=== PATIENT | female | born 1945 | race Caucasian/White ===

== ENCOUNTER 2023-02-25 01:53 | Inpatient (IN) | payer MEDICARE ==
[2023-02-25] VITALS (48 sets, daily range): BP systolic 70–109; BP diastolic 19–88
[~2023-02-25] VITALS: Ht 152.4 cm
[2023-02-25] MEDS ORDERED: CARVEDILOL25 MG PO (02:52)
[2023-02-25 02:53] LABS: MEAN CELL VOLUME 91.2 fl (81.0-99.0); MEAN CORPUSCULAR HGB 27.5 pg (27.0-31.0); MEAN CORPUSCULAR HGB CONC 30.1 g/dl (33.0-37.0); MEAN PLATELET VOLUME 9.7 fl (9.6-12.3); NUCLEATED RED BLOOD CELL 0.2 10*3/uL (0.0-0.0); NUCLEATED RED BLOOD CELL 4.5 % (0.0-0.0); PLATELET COUNT AUTOMATED 188 10*3/uL (130-400); RED BLOOD COUNT 1.93 10*6/uL (4.10-5.10); RED CELL DISTRI WIDTH 16.3 % (0-14.5); WHITE BLOOD COUNT 3.8 10*3/uL (4.8-10.8)
[2023-02-25 02:56] LABS: MANUAL DIFF REFLEX YES
[2023-02-25 02:58] LABS: HEMATOCRIT 17.6 % (37.0-47.0)
[2023-02-25 03:05] LABS: ACT PARTIAL THROMBO TIME 45.7 SECONDS (20.0-32.1); INTERNATIONAL NORM RATIO 1.5 (2.0-3.5)
[2023-02-25 03:13] LABS: BASOPHILS 1 % (0-1); BURR CELLS MODERATE; PLATELET SUFFICIENCY NORMAL (NORMAL); TOTAL CELLS COUNTED 100 #CELLS
[2023-02-25 03:14] LABS: ACANTHOCYTES FEW; POLYCHROMASIA SLIGHT; ROULEAUX SLIGHT
[2023-02-25 03:21] LABS: ALKALINE PHOSPHATASE 54 U/L (46-116); CHLORIDE 99 mmol/L (98-107); LIPASE 73 U/L (12-53); TOTAL PROTEIN 6.4 gm/dL (6.0-8.0)
[2023-02-25 03:26] LABS: BUN 165 mg/dl (9-23); SGPT/ALT < 7 U/L (10-49)
[2023-02-25 03:29] LABS: POTASSIUM 6.9 mmol/L (3.4-5.1)
[2023-02-25] MEDS ORDERED: FUROSEMIDE40 MG PO (05:05)
[2023-02-25] MEDS ORDERED: LEVOTHYROXINE75 MCG PO (05:06)
[2023-02-25] MEDS ORDERED: LOSARTAN POTASS25 M1 PO (05:06)
[2023-02-25] MEDS ORDERED: Metolazone5 MG PO (05:06)
[2023-02-25] MEDS ORDERED: POTASSIUM CHLO20 ME3 PO (05:06)
[2023-02-25] MEDS ORDERED: Bactroban Oint22 GM T (05:06)
[2023-02-25] MEDS ORDERED: ELIQUIS5 M1 PO (05:07)
[2023-02-25] MEDS ORDERED: MASON NATURAL325 MG PO (05:07)
[2023-02-25 06:09] LABS: MEAN CELL VOLUME 90.3 fl (81.0-99.0); MEAN CORPUSCULAR HGB 27.9 pg (27.0-31.0); MEAN CORPUSCULAR HGB CONC 30.9 g/dl (33.0-37.0); MEAN PLATELET VOLUME 9.7 fl (9.6-12.3); NUCLEATED RED BLOOD CELL 0.2 10*3/uL (0.0-0.0); NUCLEATED RED BLOOD CELL 5.4 % (0.0-0.0); PLATELET COUNT AUTOMATED 169 10*3/uL (130-400); RED BLOOD COUNT 1.65 10*6/uL (4.10-5.10); RED CELL DISTRI WIDTH 16.4 % (0-14.5); WHITE BLOOD COUNT 3.5 10*3/uL (4.8-10.8)
[2023-02-25 06:18] LABS: HEMATOCRIT 14.9 % (37.0-47.0); MANUAL DIFF REFLEX YES
[2023-02-25 06:40] LABS: ACT PARTIAL THROMBO TIME 48.3 SECONDS (20.0-32.1); INTERNATIONAL NORM RATIO 1.5 (2.0-3.5)
[2023-02-25 07:12] LABS: ALKALINE PHOSPHATASE 50 U/L (46-116); CHLORIDE 100 mmol/L (98-107); CHOLESTEROL 75 mg/dL (<200); CPK 48 U/L (34-171); FREE T4 0.72 ng/dl (0.89-1.76); LDL CHOLESTEROL 36 mg/dL (9-159); SGPT/ALT 9 U/L (10-49); THYROID STIM HORMONE (HS) 6.055 uIU/ml (0.550-4.780); TOTAL PROTEIN 5.1 gm/dL (6.0-8.0); TRIGLYCERIDES 68 mg/dl (<150)
[2023-02-25 07:14] LABS: BUN 210 mg/dl (9-23)
[2023-02-25 07:18] LABS: POTASSIUM 6.4 mmol/L (3.4-5.1)
[2023-02-25 07:38] LABS: BURR CELLS FEW; PLATELET SUFFICIENCY NORMAL (NORMAL); POLYCHROMASIA SLIGHT; ROULEAUX SLIGHT; TOTAL CELLS COUNTED 100 #CELLS
[2023-02-25 07:39] LABS: ACANTHOCYTES FEW; OVALOCYTES FEW
[2023-02-25 07:45] LABS: VITAMIN D, 25-HYDROXY 60.3 ng/mL (30-100)
[2023-02-25 08:06] LABS: BILIRUBIN Negative (Negative); BLOOD 3+ (Negative); CLARITY Turbid (Clear); COLOR Yellow (Yellow); GLUCOSE Trace (Negative); KETONE Trace (Negative); LEUKO ESTERASE 1+ (Negative); NITRITE Negative (Negative)
[2023-02-25 08:26] LABS: BACTERIA 1+; RBC TNTC rbc/hpf (0-2); WBC 21-30 wbc/hpf (0-5)
== END 2023-02-25 15:57 | disposition hospice, inpatient (51) | DRG 871 ==
LOC: ED 01:53 → ICCU 03:44 → EDHOLD 03:44 → ICCU 04:15
PROVIDERS: Internal Medicine; ADMIT Family Medicine; ATTEND Family Medicine
PROC: 02HV33Z Insertion of Infusion Device into Superior Vena Cava, Percutaneous Approach (ICD-10-PCS; principal; 2023-02-25)
PROC: B548ZZA Ultrasonography of Superior Vena Cava, Guidance (ICD-10-PCS; 2023-02-25)
PROC: 5A09357 Assistance with Respiratory Ventilation, Less than 24 Consecutive Hours, Continuous Positive Airway Pressure (ICD-10-PCS; 2023-02-25)
DX: A41.9 Sepsis, unspecified organism (principal); E43 Unspecified severe protein-calorie malnutrition; R65.21 Severe sepsis with septic shock; R57.0 Cardiogenic shock; G93.41 Metabolic encephalopathy; I50.23 Acute on chronic systolic (congestive) heart failure; J96.00 Acute respiratory failure, unspecified whether with hypoxia or hypercapnia; N17.0 Acute kidney failure with tubular necrosis; E87.1 Hypo-osmolality and hyponatremia; I31.39 Other pericardial effusion (noninflammatory); I31.4 Cardiac tamponade; N39.0 Urinary tract infection, site not specified; D68.9 Coagulation defect, unspecified; E87.20 Acidosis, unspecified; K92.1 Melena; Z66 Do not resuscitate; Z51.5 Encounter for palliative care; E87.5 Hyperkalemia; I11.0 Hypertensive heart disease with heart failure; J44.9 Chronic obstructive pulmonary disease, unspecified; D50.0 Iron deficiency anemia secondary to blood loss (chronic); R73.9 Hyperglycemia, unspecified; E83.39 Other disorders of phosphorus metabolism; E83.41 Hypermagnesemia; Z90.49 Acquired absence of other specified parts of digestive tract; Z82.3 Family history of stroke; Z79.899 Other long term (current) drug therapy; Z68.24 Body mass index [BMI] 24.0-24.9, adult

== ENCOUNTER 2023-02-25 16:13 | Inpatient (IN) | payer OTHER ==
[~2023-02-25] VITALS: Ht 160 cm; Wt 58.1 kg
[~2023-02-25 16:13] MED LIST: Bactroban Oint22 GM T; CARVEDILOL25 MG PO; ELIQUIS5 M1 PO; FUROSEMIDE40 MG PO; LEVOTHYROXINE75 MCG PO; LOSARTAN POTASS25 M1 PO; MASON NATURAL325 MG PO; Metolazone5 MG PO; POTASSIUM CHLO20 ME3 PO
[2023-02-25 16:20] VITALS: BP 58/22
[2023-02-25 16:30] VITALS: BP 60/31
[2023-02-25 16:45] VITALS: BP 50/33
[2023-02-25 17:00] VITALS: BP 64/37
[2023-02-25 18:07] VITALS: BP 20/0
[2023-02-25 18:22] VITALS: BP 57/34
== END 2023-02-25 23:01 | DRG 871 ==
LOC: ICCU 16:13
PROVIDERS: ADMIT Internal Medicine; ATTEND Internal Medicine
DX: A41.9 Sepsis, unspecified organism (principal); E43 Unspecified severe protein-calorie malnutrition; G93.41 Metabolic encephalopathy; N17.0 Acute kidney failure with tubular necrosis; R65.21 Severe sepsis with septic shock; K92.2 Gastrointestinal hemorrhage, unspecified; I31.39 Other pericardial effusion (noninflammatory); I31.4 Cardiac tamponade; E87.1 Hypo-osmolality and hyponatremia; N30.00 Acute cystitis without hematuria; D68.9 Coagulation defect, unspecified; Z66 Do not resuscitate; Z51.5 Encounter for palliative care; I50.9 Heart failure, unspecified; E87.5 Hyperkalemia; D50.0 Iron deficiency anemia secondary to blood loss (chronic); R73.9 Hyperglycemia, unspecified; E83.41 Hypermagnesemia; R57.0 Cardiogenic shock; E83.39 Other disorders of phosphorus metabolism; I11.0 Hypertensive heart disease with heart failure; J44.9 Chronic obstructive pulmonary disease, unspecified; Z79.899 Other long term (current) drug therapy; Z68.24 Body mass index [BMI] 24.0-24.9, adult